=== PATIENT | female | born 1940 | race Caucasian/White ===

== ENCOUNTER 2023-01-27 04:15 | Day surgery (SDC) | payer OTHER ==
[2023-01-26 08:45] VITALS: BMI 36.8
[2023-01-27] MEDS ORDERED: MIDAZOLAM HCL 2 MG/2 ML SINGLE DOSE VIAL ONE (12:02)
[2023-01-27] MEDS ORDERED: PROPOFOL 40 ML ONE (12:02)
[2023-01-27] MEDS ORDERED: ONDANSETRON 4 MG/2 ML VIAL ONE (12:43)
[2023-01-27] MEDS ORDERED: KETAMINE HCL 500 MG/10 ML VIAL ONE (12:51)
[2023-01-27] MEDS ORDERED: CLINDAMYCIN 900 MG PREMIX BAG IVPB ONE (12:59)
[2023-01-27] MEDS ORDERED: LIDOCAINE 1% P/F 10 MG/ML VIAL INF ONE ×2 (13:00)
[2023-01-27] MEDS ORDERED: BUPIVACAINE HCL/PF 0.5% (5MG/ML) 10 ML VIAL IJ ONE ×2 (13:00)
[2023-01-27] MEDS ORDERED: ONDANSETRON 4 MG/2 ML VIAL IVPUSH PRN (13:54)
[2023-01-27] MEDS ORDERED: oxyCODONE HCL 5 MG TABLET PO PRN (13:54)
[2023-01-27] MEDS ORDERED: ACETAMINOPHEN 1000 MG/100 ML BAG IVPB PRN (13:54)
[2023-01-27] MEDS ORDERED: LACTATED RINGERS SOLUTION 1,000 ML IV SCH (14:00)
[2023-01-27] MEDS ORDERED: ACETAMINOPHEN INJECTION 100 ML IVPB ONE (14:59)
[2023-01-27] MEDS ORDERED: ACETAMINOPHEN 1000 MG/100 ML BAG IVPB ONE (15:02)
[2023-01-27 16:02] VITALS: RESP 20
[2023-01-27] MEDS ORDERED: oxyCODONE HCL 5 MG TABLET ONE (16:37)
[2023-01-27 18:17] VITALS: TEMP 97.8
[2023-01-27 18:22] VITALS: BP 110/61; PULSE 78
== END 2023-01-27 17:26 | disposition home or self-care (01) ==
LOC: JASU-SURG 04:15
PROVIDERS: ATTEND Podiatrist Foot & Ankle Surgery
PROC: 0QTN0ZZ Resection of Right Metatarsal, Open Approach (ICD-10-PCS; 2023-01-27)
PROC: 0QSN04Z Reposition Right Metatarsal with Internal Fixation Device, Open Approach (ICD-10-PCS; principal; 2023-01-27 12:00)
PROC: 0SNM0ZZ Release Right Metatarsal-Phalangeal Joint, Open Approach (ICD-10-PCS; 2023-01-27 12:00)
DX: M77.41 Metatarsalgia, right foot (principal); M20.41 Other hammer toe(s) (acquired), right foot; M20.21 Hallux rigidus, right foot
CPT/HCPCS: 73630-TC-RT-FY; 87070; 87205; 88305-TC; 88311-TC; 94760

== ENCOUNTER 2023-01-30 02:02 | Inpatient (IN) | payer OTHER ==
[2023-01-30 03:04] LABS: BASO % 0.2 % (0-2.0); EOS % 1.2 % (0-4.5); HEMATOCRIT 35.4 % (32.4-45.2); HEMOGLOBIN 11.9 GM/dL (10.7-15.3); LYMPH % 22.6 % (8-40); MCH 31.3 pg (25.7-33.7); MCHC 33.7 g/dl (32.0-36.0); MEAN CELL VOLUME 92.9 fl (80-96); MEAN PLT VOLUME 7.9 fl (7.5-11.1); MONO % 9.5 % (3.8-10.2); NEUT % 66.5 % (42.8-82.8); PLATELET COUNT 224 10^3/uL (134-434); RBC 3.81 M/mm3 (3.60-5.2); WHITE BLOOD COUNT 12.5 K/mm3 (4.0-10.0)
[2023-01-30 03:10] LABS: VENOUS BASE EXCESS 4.6 mmol/L (-2-2); VENOUS O2 SATURATION 35.7 % (70-80); VENOUS PH 7.354 (7.310-7.410)
[2023-01-30 03:13] LABS: INR 1.18 (0.83-1.09); PROTHROMBIN TIME (PATIENT) 13.7 SEC (9.7-13.0)
[2023-01-30 03:15] LABS: ACTIVATED PTT 25.5 SECONDS (25.2-36.5)
[2023-01-30 03:23] LABS: POTASSIUM 3.8 mmol/L (3.5-5.1)
[2023-01-30 03:25] LABS: ALBUMIN 2.8 g/dl (3.4-5.0); CALCIUM 8.5 mg/dL (8.5-10.1)
[2023-01-30 03:26] LABS: BLOOD UREA NITROGEN 15.6 mg/dL (7-18)
[2023-01-30 03:29] LABS: CREATININE 0.7 mg/dL (0.55-1.3)
[2023-01-30 03:30] LABS: BILIRUBIN,TOTAL 0.6 mg/dL (0.2-1); TOT PROT 5.5 g/dl (6.4-8.2)
[2023-01-30 05:41] LABS: EPI CELLS 10 /uL (0-25.1); HYALINE CASTS 1 /uL (0-3.1); PH,URINE 6.5 (5.0-8.0); URINE APPEARANCE CLEAR; URINE BACTERIA 26 /uL (0-1359); URINE BILIRUBIN 1+ (NEGATIVE); URINE COLOR DK YELLOW; URINE GLUCOSE (UA) NEGATIVE (NEGATIVE); URINE KETONE TRACE (NEGATIVE); URINE LEUK ESTERASE NEGATIVE (NEGATIVE); URINE NITRITE NEGATIVE (NEGATIVE); URINE PROTEIN 1+ (NEGATIVE); URINE RBC 31 /uL (0-23.9); URINE WBC 8 /uL (0-25.8)
[2023-01-30] MEDS ORDERED: ACETAMINOPHEN 1000 MG/100 ML BAG IVPB PRN (09:50)
[2023-01-30] MEDS ORDERED: ALBUTEROL SO4 HFA INHALER IH PRN (09:51)
[2023-01-30] MEDS ORDERED: PARoxetine HCL 30 MG TABLET PO SCH (10:00)
[2023-01-30] MEDS ORDERED: PANTOPRAZOLE 20 MG TABLET PO ONE (10:20)
[2023-01-30] MEDS ORDERED: metoPROLOL SUCCINATE 25 MG TAB.SR.24H (FP) PO ONE (10:20)
[2023-01-30] MEDS ORDERED: ENOXAPARIN NA (PORCINE) 40 MG/0.4 ML DISP.SYRIN SQ ONE (10:21)
[2023-01-30] MEDS ORDERED: PARoxetine HCL 10 MG TABLET ONE (10:21)
[2023-01-30] MEDS ORDERED: LEVOTHYROXINE NA 75 MCG TABLET (FP) ONE (10:21)
[2023-01-30] MEDS: metoPROLOL SUCCINATE 25 MG TAB.SR.24H (FP) PO SCH (10:35)
[2023-01-30] MEDS: PANTOPRAZOLE 20 MG TABLET PO SCH (10:35)
[2023-01-30] MEDS: ENOXAPARIN NA (PORCINE) 40 MG/0.4 ML DISP.SYRIN SQ SCH (10:35)
[2023-01-30] MEDS: LEVOTHYROXINE NA 75 MCG TABLET (FP) PO SCH (10:35)
[2023-01-30] MEDS: methylPREDNISolone 4 MG TABLET PO SCH (14:38)
[2023-01-30] MEDS: METHOTREXATE 2.5 MG TABLET PO SCH (14:38)
[2023-01-31 00:47] VITALS: BMI 29.0
[2023-01-31] MEDS: LEVOTHYROXINE NA 75 MCG TABLET (FP) PO SCH (06:29)
[2023-01-31 07:33] LABS: BASO % 0.6 % (0-2.0); EOS % 1.4 % (0-4.5); HEMATOCRIT 35.1 % (32.4-45.2); HEMOGLOBIN 12.2 GM/dL (10.7-15.3); LYMPH % 20.4 % (8-40); MCH 32.2 pg (25.7-33.7); MCHC 34.8 g/dl (32.0-36.0); MEAN CELL VOLUME 92.6 fl (80-96); MEAN PLT VOLUME 7.9 fl (7.5-11.1); MONO % 6.9 % (3.8-10.2); NEUT % 70.7 % (42.8-82.8); PLATELET COUNT 260 10^3/uL (134-434); RBC 3.79 M/mm3 (3.60-5.2); RDW 14.9 % (11.6-15.6); WHITE BLOOD COUNT 10.4 K/mm3 (4.0-10.0)
[2023-01-31 07:57] LABS: POTASSIUM 3.9 mmol/L (3.5-5.1)
[2023-01-31 07:58] LABS: CALCIUM 9.1 mg/dL (8.5-10.1)
[2023-01-31 07:59] LABS: MAGNESIUM 2.1 mg/dL (1.8-2.4)
[2023-01-31 08:00] LABS: ALBUMIN 2.7 g/dl (3.4-5.0); BLOOD UREA NITROGEN 11.1 mg/dL (7-18)
[2023-01-31 08:02] LABS: CREATININE 0.5 mg/dL (0.55-1.3)
[2023-01-31 08:03] LABS: PHOSPHOROUS 2.5 mg/dL (2.5-4.9)
[2023-01-31 08:04] LABS: TOT PROT 5.6 g/dl (6.4-8.2)
[2023-01-31 08:05] LABS: BILIRUBIN,TOTAL 0.5 mg/dL (0.2-1)
[2023-01-31] MEDS: PANTOPRAZOLE 20 MG TABLET PO SCH (09:44)
[2023-01-31] MEDS: metoPROLOL SUCCINATE 25 MG TAB.SR.24H (FP) PO SCH (09:44)
[2023-01-31] MEDS: methylPREDNISolone 4 MG TABLET PO SCH (09:45)
[2023-01-31] MEDS: PAROXETINE HCL 20 MG, PAROXETINE HCL 10 MG PO SCH (09:45)
[2023-01-31] MEDS: METHOTREXATE 2.5 MG TABLET PO SCH (09:46)
[2023-01-31] MEDS: ENOXAPARIN NA (PORCINE) 40 MG/0.4 ML DISP.SYRIN SQ SCH (09:47)
[2023-01-31] MEDS ORDERED: SODIUM CHLORIDE 500 ML IV SCH (11:15)
[2023-01-31] MEDS: ACETAMINOPHEN 325 MG TABLET (FP) PO PRN ×2 (11:34→20:14)
[2023-01-31] MEDS ORDERED: ALBUTEROL SO4 HFA INHALER IH PRN (14:28)
[2023-01-31] MEDS ORDERED: MELATONIN 5 MG TABLETS PO ONE (22:12)
[2023-02-01] MEDS ORDERED: LEVOTHYROXINE NA 75 MCG TABLET (FP) PO SCH (07:00)
[2023-02-01] MEDS: METHOTREXATE 2.5 MG TABLET PO SCH ×2 (09:55→10:07)
[2023-02-01] MEDS: PAROXETINE HCL 20 MG, PAROXETINE HCL 10 MG PO SCH (09:55)
[2023-02-01] MEDS ORDERED: metoPROLOL SUCCINATE 25 MG TAB.SR.24H (FP) PO SCH (10:00)
[2023-02-01] MEDS ORDERED: methylPREDNISolone 4 MG TABLET PO SCH (10:00)
[2023-02-01] MEDS ORDERED: PANTOPRAZOLE 20 MG TABLET PO SCH (10:00)
[2023-02-01] MEDS ORDERED: ENOXAPARIN NA (PORCINE) 40 MG/0.4 ML DISP.SYRIN SQ SCH (10:00)
[2023-02-01] MEDS: ACETAMINOPHEN 325 MG TABLET (FP) PO PRN ×3 (10:09→22:44)
[2023-02-01] MEDS ORDERED: ACETAMINOPHEN 325 MG TABLET (FP) PO PRN (12:05)
[2023-02-01] MEDS ORDERED: ALBUTEROL SO4 HFA INHALER IH PRN ×3 (12:05→23:42)
[2023-02-01] MEDS ORDERED: SENNOSIDES 8.6MG TABLET (FP) PO PRN ×2 (15:08→23:42)
[2023-02-01] MEDS: NYSTATIN 500,000 UNITS/5 ML SUSPENSION PO SCH ×2 (17:17→21:33)
[2023-02-01] MEDS ORDERED: ASCORBIC ACID 500 MG TABLET (FP) PO SCH (22:00)
[2023-02-01] MEDS ORDERED: CALCIUM 500MG/VIT-D 200 UNITS COMBO TABLET (FP) PO SCH (22:00)
[2023-02-01] MEDS ORDERED: DOCUSATE SODIUM 100 MG CAPSULE (FP) PO SCH (22:00)
[2023-02-02] MEDS: LEVOTHYROXINE NA 75 MCG TABLET (FP) PO SCH (06:05)
[2023-02-02 06:49] LABS: BASO % 0.9 % (0-2.0); EOS % 3.4 % (0-4.5); HEMATOCRIT 35.8 % (32.4-45.2); HEMOGLOBIN 12.5 GM/dL (10.7-15.3); LYMPH % 30.7 % (8-40); MCH 32.4 pg (25.7-33.7); MEAN CELL VOLUME 92.7 fl (80-96); PLATELET COUNT 283 10^3/uL (134-434); RBC 3.86 M/mm3 (3.60-5.2); RDW 15.1 % (11.6-15.6); WHITE BLOOD COUNT 7.2 K/mm3 (4.0-10.0)
[2023-02-02] MEDS ORDERED: LEVOTHYROXINE NA 75 MCG TABLET (FP) PO SCH ×2 (07:00)
[2023-02-02 07:14] LABS: ALBUMIN 2.6 g/dl (3.4-5.0); BLOOD UREA NITROGEN 9.3 mg/dL (7-18); CALCIUM 9.1 mg/dL (8.5-10.1); MAGNESIUM 2.1 mg/dL (1.8-2.4)
[2023-02-02 07:17] LABS: CREATININE 0.5 mg/dL (0.55-1.3); PHOSPHOROUS 3.6 mg/dL (2.5-4.9)
[2023-02-02 07:19] LABS: BILIRUBIN,TOTAL 0.4 mg/dL (0.2-1); TOT PROT 5.5 g/dl (6.4-8.2)
[2023-02-02] MEDS: PANTOPRAZOLE 20 MG TABLET PO SCH (09:57)
[2023-02-02] MEDS: DOCUSATE SODIUM 100 MG CAPSULE (FP) PO SCH ×2 (09:57→21:14)
[2023-02-02] MEDS: ENOXAPARIN NA (PORCINE) 40 MG/0.4 ML DISP.SYRIN SQ SCH (09:57)
[2023-02-02] MEDS: ASCORBIC ACID 500 MG TABLET (FP) PO SCH ×2 (09:57→21:14)
[2023-02-02] MEDS: metoPROLOL SUCCINATE 25 MG TAB.SR.24H (FP) PO SCH (09:57)
[2023-02-02] MEDS: NYSTATIN 500,000 UNITS/5 ML SUSPENSION PO SCH ×4 (09:57→21:15)
[2023-02-02] MEDS: CALCIUM 500MG/VIT-D 200 UNITS COMBO TABLET (FP) PO SCH ×2 (09:57→21:14)
[2023-02-02] MEDS ORDERED: PAROXETINE HCL 20 MG, PAROXETINE HCL 10 MG PO SCH ×2 (10:00)
[2023-02-02] MEDS ORDERED: metoPROLOL SUCCINATE 25 MG TAB.SR.24H (FP) PO SCH ×2 (10:00)
[2023-02-02] MEDS ORDERED: methylPREDNISolone 4 MG TABLET PO SCH ×2 (10:00)
[2023-02-02] MEDS ORDERED: ENOXAPARIN NA (PORCINE) 40 MG/0.4 ML DISP.SYRIN SQ SCH ×2 (10:00)
[2023-02-02] MEDS ORDERED: METHOTREXATE 2.5 MG TABLET PO SCH ×3 (10:00)
[2023-02-02] MEDS ORDERED: PANTOPRAZOLE 20 MG TABLET PO SCH ×2 (10:00)
[2023-02-02] MEDS: ACETAMINOPHEN 325 MG TABLET (FP) PO PRN ×3 (10:44→22:54)
[2023-02-02] MEDS: methylPREDNISolone 4 MG TABLET PO SCH (11:00)
[2023-02-02] MEDS: PAROXETINE HCL 20 MG, PAROXETINE HCL 10 MG PO SCH (11:00)
[2023-02-03] MEDS: LEVOTHYROXINE NA 75 MCG TABLET (FP) PO SCH (06:04)
[2023-02-03] MEDS: ACETAMINOPHEN 325 MG TABLET (FP) PO PRN (10:42)
[2023-02-03] MEDS: NYSTATIN 500,000 UNITS/5 ML SUSPENSION PO SCH ×2 (10:43→14:49)
[2023-02-03] MEDS: CALCIUM 500MG/VIT-D 200 UNITS COMBO TABLET (FP) PO SCH (10:43)
[2023-02-03] MEDS: ASCORBIC ACID 500 MG TABLET (FP) PO SCH (10:43)
[2023-02-03] MEDS: PANTOPRAZOLE 20 MG TABLET PO SCH (10:43)
[2023-02-03] MEDS: DOCUSATE SODIUM 100 MG CAPSULE (FP) PO SCH (10:43)
[2023-02-03] MEDS: metoPROLOL SUCCINATE 25 MG TAB.SR.24H (FP) PO SCH (10:43)
[2023-02-03] MEDS: PAROXETINE HCL 20 MG, PAROXETINE HCL 10 MG PO SCH (10:47)
[2023-02-03] MEDS: ENOXAPARIN NA (PORCINE) 40 MG/0.4 ML DISP.SYRIN SQ SCH (10:47)
[2023-02-03] MEDS: methylPREDNISolone 4 MG TABLET PO SCH (10:48)
[2023-02-03 14:27] VITALS: BP 112/52; PULSE 87; RESP 18; TEMP 97.9
== END 2023-02-03 16:38 | disposition home or self-care (01) | DRG 92 ==
LOC: JER 02:02 → JERBED 06:12 → J4S 20:35 → J5S 01-31 13:30 → OBSVTOIN 02-01 13:56 → J4S 02-01 23:24
PROVIDERS: ADMIT Internal Medicine; ATTEND Internal Medicine
DX: G92.8 Other toxic encephalopathy (principal); I24.8 Other forms of acute ischemic heart disease; J98.11 Atelectasis; J44.9 Chronic obstructive pulmonary disease, unspecified; I10 Essential (primary) hypertension; E78.5 Hyperlipidemia, unspecified; E03.9 Hypothyroidism, unspecified; F32.A Depression, unspecified; G47.09 Other insomnia; R94.31 Abnormal electrocardiogram [ECG] [EKG]; L40.59 Other psoriatic arthropathy; I44.0 Atrioventricular block, first degree; I45.19 Other right bundle-branch block; I35.0 Nonrheumatic aortic (valve) stenosis; T40.2X5A Adverse effect of other opioids, initial encounter; T42.6X5A Adverse effect of other antiepileptic and sedative-hypnotic drugs, initial encounter; R09.02 Hypoxemia
CPT/HCPCS: 0241U-QW; 36415; 70450-TC; 71045-TC-FY; 71250-TC; 80053; 80061; 81003; 82550; 82553; 82803; 82962; 83036; 83735; 84100; 84439; 84443; 84484; 85025; 85610; 85730; 87086; 93005; 93010; 93306-TC; 93970-TC; 94010; 94761; 97116-GP; 97161-GP; 99285-25; G0378; J8610

== ENCOUNTER 2023-02-03 20:30 | Inpatient (IN) | payer OTHER ==
[2023-02-03 22:25] LABS: VENOUS BASE EXCESS -0.6 mmol/L (-2-2); VENOUS O2 SATURATION 82.6 % (70-80); VENOUS PCO2 37.7 mmHg (38-52); VENOUS PH 7.416 (7.310-7.410)
[2023-02-03 22:27] LABS: BASO % 0.9 % (0-2.0); EOS % 1.8 % (0-4.5); HEMATOCRIT 37.7 % (32.4-45.2); HEMOGLOBIN 12.9 GM/dL (10.7-15.3); LYMPH % 20.5 % (8-40); MCH 31.9 pg (25.7-33.7); MCHC 34.3 g/dl (32.0-36.0); MEAN PLT VOLUME 8.3 fl (7.5-11.1); MONO % 5.4 % (3.8-10.2); NEUT % 71.4 % (42.8-82.8); PLATELET COUNT 332 10^3/uL (134-434); RBC 4.05 M/mm3 (3.60-5.2); RDW 15.2 % (11.6-15.6); WHITE BLOOD COUNT 10.8 K/mm3 (4.0-10.0)
[2023-02-03 22:37] LABS: INR 1.13 (0.83-1.09); PROTHROMBIN TIME (PATIENT) 13.1 SEC (9.7-13.0)
[2023-02-03 22:40] LABS: ACTIVATED PTT 30.4 SECONDS (25.2-36.5)
[2023-02-03 22:48] LABS: POTASSIUM 3.8 mmol/L (3.5-5.1)
[2023-02-03 22:51] LABS: BLOOD UREA NITROGEN 21.2 mg/dL (7-18)
[2023-02-03 22:54] LABS: CREATININE 0.7 mg/dL (0.55-1.3)
[2023-02-03 22:55] LABS: BILIRUBIN,TOTAL 0.3 mg/dL (0.2-1)
[2023-02-03] MEDS ORDERED: SODIUM CHLORIDE 0.9% 500 ML INFUS.BAG IV ONE (23:00)
[2023-02-03] MEDS ORDERED: MEROPENEM 1 GM in DEXTROSE 5%-WATER 100 ML IVPB ONE (23:03)
[2023-02-03] MEDS ORDERED: VANCOMYCIN/WATER 2 GM/400 ML PREMIX BAG (RESTRICTED TO ID ONLY) IVPB ONE (23:04)
[2023-02-03] MEDS ORDERED: ACETAMINOPHEN 1000 MG/100 ML BAG IVPB ONE (23:06)
[2023-02-03 23:18] LABS: ERYTHROCYTE SEDIMENTATION RATE 45 mm/hr (0-30)
[2023-02-04] MEDS ORDERED: MEROPENEM 1 GM VIAL (RESTRICTED TO ID) IVPB ONE (00:10)
[2023-02-04] MEDS ORDERED: MAG HYDROX/AL HYDROX/SIMETH 30 ML UNIT-DOSE CUP PO PRN (01:17)
[2023-02-04] MEDS ORDERED: guaiFENesin/D-METHORPHAN HB 10 ML UNIT-DOSE CUPS PO PRN (01:18)
[2023-02-04] MEDS ORDERED: PANTOPRAZOLE 20 MG TABLET PO ONE (01:18)
[2023-02-04] MEDS ORDERED: ALBUTEROL SO4 HFA INHALER IH PRN (01:34)
[2023-02-04] MEDS ORDERED: SENNOSIDES 8.6MG TABLET (FP) PO PRN (01:35)
[2023-02-04] MEDS ORDERED: DOCUSATE SODIUM 100 MG CAPSULE (FP) PO ONE (02:19)
[2023-02-04] MEDS ORDERED: ASCORBIC ACID 500 MG TABLET (FP) ONE (02:19)
[2023-02-04] MEDS: DOCUSATE SODIUM 100 MG CAPSULE (FP) PO SCH ×3 (02:22→21:24)
[2023-02-04] MEDS: ASCORBIC ACID 500 MG TABLET (FP) PO SCH ×3 (02:22→21:24)
[2023-02-04] MEDS ORDERED: ZOLPIDEM TARTRATE 5 MG TABLET PO PRN (03:54)
[2023-02-04] MEDS: LEVOTHYROXINE NA 75 MCG TABLET (FP) PO SCH (06:02)
[2023-02-04 07:55] VITALS: BMI 45.2
[2023-02-04 08:18] LABS: EOS % 3.9 % (0-4.5); HEMATOCRIT 35.3 % (32.4-45.2); HEMOGLOBIN 12.1 GM/dL (10.7-15.3); LYMPH % 28.2 % (8-40); MCH 31.7 pg (25.7-33.7); MCHC 34.2 g/dl (32.0-36.0); MEAN CELL VOLUME 92.6 fl (80-96); MEAN PLT VOLUME 8.2 fl (7.5-11.1); MONO % 8.1 % (3.8-10.2); NEUT % 58.8 % (42.8-82.8); PLATELET COUNT 315 10^3/uL (134-434); RBC 3.81 M/mm3 (3.60-5.2); RDW 15.1 % (11.6-15.6); WHITE BLOOD COUNT 8.3 K/mm3 (4.0-10.0)
[2023-02-04 08:36] LABS: POTASSIUM 4.4 mmol/L (3.5-5.1)
[2023-02-04 08:44] LABS: CALCIUM 9.1 mg/dL (8.5-10.1)
[2023-02-04 08:47] LABS: CREATININE 0.6 mg/dL (0.55-1.3)
[2023-02-04] MEDS ORDERED: FOLIC ACID 1 MG TABLET (FP) PO SCH (10:00)
[2023-02-04] MEDS ORDERED: LORATADINE 10 MG TABLET PO SCH (10:00)
[2023-02-04] MEDS ORDERED: PARoxetine HCL 30 MG TABLET PO SCH (10:00)
[2023-02-04] MEDS ORDERED: MULTIVITAMINS (DAILY MVI) TABLET (FP) PO SCH (10:00)
[2023-02-04] MEDS: CALCIUM 500MG/VIT-D 200 UNITS COMBO TABLET (FP) PO SCH ×2 (10:13→21:24)
[2023-02-04] MEDS: MEROPENEM 1 GM in DEXTROSE 5%-WATER 100 ML IVPB SCH ×2 (10:13→17:10)
[2023-02-04] MEDS: PAROXETINE HCL 20 MG, PAROXETINE HCL 10 MG PO SCH (10:20)
[2023-02-04] MEDS: PANTOPRAZOLE 20 MG TABLET PO SCH (10:20)
[2023-02-04] MEDS: metoPROLOL SUCCINATE 25 MG TAB.SR.24H (FP) PO SCH (10:20)
[2023-02-04] MEDS: ACETAMINOPHEN 1000 MG/100 ML BAG IVPB PRN ×2 (10:28→18:22)
[2023-02-04] MEDS: methylPREDNISolone 4 MG TABLET PO SCH (11:20)
[2023-02-04] MEDS: VANCOMYCIN PREMIX 1.5 GM 1,500 MG/300 ML BAG IVPB SCH (12:33)
[2023-02-04 13:34] LABS: EPI CELLS 6 /uL (0-25.1); HYALINE CASTS 0 /uL (0-3.1); PH,URINE 6.5 (5.0-8.0); URINE APPEARANCE CLOUDY; URINE BACTERIA >9,000 /uL (0-1359); URINE BILIRUBIN NEGATIVE (NEGATIVE); URINE COLOR YELLOW; URINE GLUCOSE (UA) NEGATIVE (NEGATIVE); URINE KETONE NEGATIVE (NEGATIVE); URINE LEUK ESTERASE TRACE (NEGATIVE); URINE NITRITE NEGATIVE (NEGATIVE); URINE PROTEIN NEGATIVE (NEGATIVE); URINE WBC 64 /uL (0-25.8)
[2023-02-04 14:25] LABS: URINE RBC 35 /uL (0-23.9)
[2023-02-04] MEDS: HEPARIN NA (PORCINE) 5,000 UNITS/ML 1ML VIAL SQ SCH (21:23)
[2023-02-05] MEDS: MEROPENEM 1 GM in DEXTROSE 5%-WATER 100 ML IVPB SCH (01:52)
[2023-02-05] MEDS: VANCOMYCIN PREMIX 1.5 GM 1,500 MG/300 ML BAG IVPB SCH (03:03)
[2023-02-05] MEDS: LEVOTHYROXINE NA 75 MCG TABLET (FP) PO SCH (06:32)
[2023-02-05] MEDS: methylPREDNISolone 4 MG TABLET PO SCH (09:46)
[2023-02-05] MEDS: ACETAMINOPHEN 325 MG TABLET (FP) PO PRN ×2 (09:46→17:49)
[2023-02-05] MEDS: HEPARIN NA (PORCINE) 5,000 UNITS/ML 1ML VIAL SQ SCH ×2 (09:46→21:22)
[2023-02-05] MEDS: ASCORBIC ACID 500 MG TABLET (FP) PO SCH ×2 (09:47→21:22)
[2023-02-05] MEDS: DOCUSATE SODIUM 100 MG CAPSULE (FP) PO SCH ×2 (09:47→21:22)
[2023-02-05] MEDS: CALCIUM 500MG/VIT-D 200 UNITS COMBO TABLET (FP) PO SCH ×2 (09:47→21:22)
[2023-02-05] MEDS: metoPROLOL SUCCINATE 25 MG TAB.SR.24H (FP) PO SCH (09:47)
[2023-02-05] MEDS: PANTOPRAZOLE 20 MG TABLET PO SCH (09:48)
[2023-02-05] MEDS: PAROXETINE HCL 20 MG, PAROXETINE HCL 10 MG PO SCH (09:48)
[2023-02-05] MEDS ORDERED: MEROPENEM 1 GM in DEXTROSE 5%-WATER 100 ML IVPB SCH (10:00)
[2023-02-05] MEDS ORDERED: VANCOMYCIN PREMIX 1.5 GM 1,500 MG/300 ML BAG IVPB SCH (13:00)
[2023-02-05] MEDS: VANCOMYCIN/WATER 1250 MG 1,250 MG/250 ML BAG IVPB SCH (15:03)
[2023-02-06] MEDS: VANCOMYCIN/WATER 1250 MG 1,250 MG/250 ML BAG IVPB SCH ×2 (03:01→15:08)
[2023-02-06] MEDS: LEVOTHYROXINE NA 75 MCG TABLET (FP) PO SCH (06:15)
[2023-02-06] MEDS: HEPARIN NA (PORCINE) 5,000 UNITS/ML 1ML VIAL SQ SCH ×2 (09:36→22:05)
[2023-02-06] MEDS: DOCUSATE SODIUM 100 MG CAPSULE (FP) PO SCH ×2 (09:36→22:04)
[2023-02-06] MEDS: metoPROLOL SUCCINATE 25 MG TAB.SR.24H (FP) PO SCH (09:37)
[2023-02-06] MEDS: CALCIUM 500MG/VIT-D 200 UNITS COMBO TABLET (FP) PO SCH ×2 (09:37→22:05)
[2023-02-06] MEDS: PAROXETINE HCL 20 MG, PAROXETINE HCL 10 MG PO SCH (09:38)
[2023-02-06] MEDS: methylPREDNISolone 4 MG TABLET PO SCH (09:38)
[2023-02-06] MEDS: ASCORBIC ACID 500 MG TABLET (FP) PO SCH ×2 (09:38→22:07)
[2023-02-06] MEDS: PANTOPRAZOLE 20 MG TABLET PO SCH (09:38)
[2023-02-06] MEDS: ACETAMINOPHEN 325 MG TABLET (FP) PO PRN ×2 (09:39→15:09)
[2023-02-06 10:29] LABS: BASO % 1.6 % (0-2.0); EOS % 3.3 % (0-4.5); HEMATOCRIT 37.2 % (32.4-45.2); HEMOGLOBIN 12.5 GM/dL (10.7-15.3); LYMPH % 23.1 % (8-40); MCH 31.2 pg (25.7-33.7); MCHC 33.7 g/dl (32.0-36.0); MEAN CELL VOLUME 92.6 fl (80-96); MEAN PLT VOLUME 7.6 fl (7.5-11.1); MONO % 6.6 % (3.8-10.2); NEUT % 65.4 % (42.8-82.8); PLATELET COUNT 353 10^3/uL (134-434); RBC 4.02 M/mm3 (3.60-5.2); RDW 15.2 % (11.6-15.6); WHITE BLOOD COUNT 7.8 K/mm3 (4.0-10.0)
[2023-02-06] MEDS: POLYETHYLENE GLYCOL (HEALTHYLAX) 3350 17 GM PACKET PO SCH ×2 (10:43→22:05)
[2023-02-06 11:42] LABS: POTASSIUM 4.3 mmol/L (3.5-5.1)
[2023-02-06] MEDS ORDERED: METHOTREXATE 2.5 MG TABLET PO SCH (11:45)
[2023-02-06 12:15] LABS: CALCIUM 9.1 mg/dL (8.5-10.1)
[2023-02-06 12:16] LABS: ALBUMIN 2.9 g/dl (3.4-5.0)
[2023-02-06 12:18] LABS: CREATININE 0.6 mg/dL (0.55-1.3)
[2023-02-06 12:20] LABS: BILIRUBIN,TOTAL 0.4 mg/dL (0.2-1); TOT PROT 5.5 g/dl (6.4-8.2)
[2023-02-06] MEDS: NYSTATIN POWDER 100,000 UNITS/GM - 15 GM TOPICAL POWDER TP SCH ×2 (12:37→22:06)
[2023-02-06] MEDS: METHOTREXATE 2.5 MG TABLET PO SCH ×5 (15:15→22:19)
[2023-02-06] MEDS: NYSTATIN 500,000 UNITS/5 ML SUSPENSION PO SCH ×4 (15:15→18:12)
[2023-02-07] MEDS: VANCOMYCIN/WATER 1250 MG 1,250 MG/250 ML BAG IVPB SCH ×2 (02:04→16:22)
[2023-02-07] MEDS: LEVOTHYROXINE NA 75 MCG TABLET (FP) PO SCH (06:13)
[2023-02-07 08:11] LABS: BASO % 1.4 % (0-2.0); EOS % 4.2 % (0-4.5); HEMATOCRIT 37.9 % (32.4-45.2); HEMOGLOBIN 12.5 GM/dL (10.7-15.3); LYMPH % 26.5 % (8-40); MCH 30.7 pg (25.7-33.7); MEAN CELL VOLUME 93.3 fl (80-96); MEAN PLT VOLUME 7.4 fl (7.5-11.1); MONO % 8.3 % (3.8-10.2); NEUT % 59.6 % (42.8-82.8); PLATELET COUNT 350 10^3/uL (134-434); RBC 4.06 M/mm3 (3.60-5.2); RDW 15.2 % (11.6-15.6); WHITE BLOOD COUNT 8.2 K/mm3 (4.0-10.0)
[2023-02-07 08:23] LABS: POTASSIUM 4.3 mmol/L (3.5-5.1)
[2023-02-07 08:25] LABS: CALCIUM 9.4 mg/dL (8.5-10.1)
[2023-02-07 08:26] LABS: BLOOD UREA NITROGEN 16.2 mg/dL (7-18); MAGNESIUM 2.1 mg/dL (1.8-2.4)
[2023-02-07 08:30] LABS: CREATININE 0.6 mg/dL (0.55-1.3)
[2023-02-07] MEDS: DOCUSATE SODIUM 100 MG CAPSULE (FP) PO SCH ×2 (09:54→21:31)
[2023-02-07] MEDS: metoPROLOL SUCCINATE 25 MG TAB.SR.24H (FP) PO SCH (09:54)
[2023-02-07] MEDS: PANTOPRAZOLE 20 MG TABLET PO SCH (09:55)
[2023-02-07] MEDS: CALCIUM 500MG/VIT-D 200 UNITS COMBO TABLET (FP) PO SCH ×2 (09:55→21:31)
[2023-02-07] MEDS: HEPARIN NA (PORCINE) 5,000 UNITS/ML 1ML VIAL SQ SCH ×2 (09:55→21:31)
[2023-02-07] MEDS: POLYETHYLENE GLYCOL (HEALTHYLAX) 3350 17 GM PACKET PO SCH ×2 (09:55→21:31)
[2023-02-07] MEDS: PAROXETINE HCL 20 MG, PAROXETINE HCL 10 MG PO SCH (09:55)
[2023-02-07] MEDS: methylPREDNISolone 4 MG TABLET PO SCH (09:56)
[2023-02-07] MEDS: NYSTATIN POWDER 100,000 UNITS/GM - 15 GM TOPICAL POWDER TP SCH ×2 (09:56→21:31)
[2023-02-07] MEDS: ASCORBIC ACID 500 MG TABLET (FP) PO SCH ×2 (09:57→21:32)
[2023-02-07] MEDS: ACETAMINOPHEN 325 MG TABLET (FP) PO PRN ×2 (10:55→18:57)
[2023-02-08] MEDS: LEVOTHYROXINE NA 75 MCG TABLET (FP) PO SCH (06:28)
[2023-02-08 07:08] LABS: BASO % 1.9 % (0-2.0); EOS % 4.6 % (0-4.5); HEMATOCRIT 38.7 % (32.4-45.2); HEMOGLOBIN 13.2 GM/dL (10.7-15.3); LYMPH % 29.9 % (8-40); MCH 31.8 pg (25.7-33.7); MCHC 34.1 g/dl (32.0-36.0); MEAN CELL VOLUME 93.1 fl (80-96); MEAN PLT VOLUME 8.3 fl (7.5-11.1); NEUT % 55.6 % (42.8-82.8); PLATELET COUNT 322 10^3/uL (134-434); RBC 4.16 M/mm3 (3.60-5.2); RDW 15.2 % (11.6-15.6); WHITE BLOOD COUNT 7.7 K/mm3 (4.0-10.0)
[2023-02-08 07:20] LABS: POTASSIUM 4.2 mmol/L (3.5-5.1)
[2023-02-08 07:25] LABS: BLOOD UREA NITROGEN 15.6 mg/dL (7-18); CALCIUM 9.5 mg/dL (8.5-10.1); MAGNESIUM 1.8 mg/dL (1.8-2.4)
[2023-02-08 07:30] LABS: CREATININE 0.5 mg/dL (0.55-1.3)
[2023-02-08 08:49] LABS: ERYTHROCYTE SEDIMENTATION RATE 33 mm/hr (0-30)
[2023-02-08 09:33] VITALS: RESP 18
[2023-02-08] MEDS: VANCOMYCIN/WATER 1250 MG 1,250 MG/250 ML BAG IVPB SCH (09:55)
[2023-02-08] MEDS: CALCIUM 500MG/VIT-D 200 UNITS COMBO TABLET (FP) PO SCH ×2 (09:56→21:27)
[2023-02-08] MEDS: PAROXETINE HCL 20 MG, PAROXETINE HCL 10 MG PO SCH (09:56)
[2023-02-08] MEDS: DOCUSATE SODIUM 100 MG CAPSULE (FP) PO SCH ×2 (09:56→21:27)
[2023-02-08] MEDS: HEPARIN NA (PORCINE) 5,000 UNITS/ML 1ML VIAL SQ SCH ×2 (09:56→21:27)
[2023-02-08] MEDS: metoPROLOL SUCCINATE 25 MG TAB.SR.24H (FP) PO SCH (09:56)
[2023-02-08] MEDS: NYSTATIN POWDER 100,000 UNITS/GM - 15 GM TOPICAL POWDER TP SCH ×2 (09:57→22:30)
[2023-02-08] MEDS: PANTOPRAZOLE 20 MG TABLET PO SCH (09:57)
[2023-02-08] MEDS: POLYETHYLENE GLYCOL (HEALTHYLAX) 3350 17 GM PACKET PO SCH ×2 (09:58→21:27)
[2023-02-08] MEDS: ASCORBIC ACID 500 MG TABLET (FP) PO SCH ×2 (09:58→21:27)
[2023-02-08] MEDS: ACETAMINOPHEN 325 MG TABLET (FP) PO PRN ×2 (10:01→20:14)
[2023-02-08] MEDS: methylPREDNISolone 4 MG TABLET PO SCH (10:02)
[2023-02-09] MEDS: LEVOTHYROXINE NA 75 MCG TABLET (FP) PO SCH (06:03)
[2023-02-09] MEDS: ASCORBIC ACID 500 MG TABLET (FP) PO SCH (09:51)
[2023-02-09] MEDS: POLYETHYLENE GLYCOL (HEALTHYLAX) 3350 17 GM PACKET PO SCH (09:51)
[2023-02-09] MEDS: PAROXETINE HCL 20 MG, PAROXETINE HCL 10 MG PO SCH (09:51)
[2023-02-09] MEDS: CALCIUM 500MG/VIT-D 200 UNITS COMBO TABLET (FP) PO SCH (09:52)
[2023-02-09] MEDS: PANTOPRAZOLE 20 MG TABLET PO SCH (09:52)
[2023-02-09] MEDS: DOCUSATE SODIUM 100 MG CAPSULE (FP) PO SCH (09:52)
[2023-02-09] MEDS: HEPARIN NA (PORCINE) 5,000 UNITS/ML 1ML VIAL SQ SCH (09:53)
[2023-02-09] MEDS: VANCOMYCIN/WATER 1250 MG 1,250 MG/250 ML BAG IVPB SCH (09:53)
[2023-02-09] MEDS: methylPREDNISolone 4 MG TABLET PO SCH (09:54)
[2023-02-09] MEDS: NYSTATIN POWDER 100,000 UNITS/GM - 15 GM TOPICAL POWDER TP SCH (09:54)
[2023-02-09] MEDS ORDERED: DOXYCYCLINE HYCLATE 100 MG CAPSULE PO SCH ×2 (10:00)
[2023-02-09] MEDS: ACETAMINOPHEN 325 MG TABLET (FP) PO PRN (10:07)
[2023-02-09] MEDS: metoPROLOL SUCCINATE 25 MG TAB.SR.24H (FP) PO SCH (10:11)
[2023-02-09 12:08] VITALS: BP 99/60; PULSE 91; TEMP 98.4
== END 2023-02-09 13:33 | DRG 863 ==
LOC: JER 20:30 → JERBED 23:01 → J7W 02-04 03:22
PROVIDERS: ADMIT Internal Medicine; ATTEND Internal Medicine
DX: T81.49XA Infection following a procedure, other surgical site, initial encounter (principal); L03.115 Cellulitis of right lower limb; J44.9 Chronic obstructive pulmonary disease, unspecified; I10 Essential (primary) hypertension; E78.5 Hyperlipidemia, unspecified; E03.9 Hypothyroidism, unspecified; Z88.0 Allergy status to penicillin; I44.0 Atrioventricular block, first degree; I45.10 Unspecified right bundle-branch block; M79.671 Pain in right foot; L40.50 Arthropathic psoriasis, unspecified; E66.9 Obesity, unspecified; Z68.38 Body mass index [BMI] 38.0-38.9, adult; N20.0 Calculus of kidney; B95.7 Other staphylococcus as the cause of diseases classified elsewhere; Y83.8 Other surgical procedures as the cause of abnormal reaction of the patient, or of later complication, without mention of misadventure at the time of the procedure
CPT/HCPCS: 0241U-QW; 36415; 71045-TC-FY; 73630-TC-RT-FY; 73723-TC; 80048; 80053; 81003; 82803; 83605; 83735; 85025; 85610; 85651; 85730; 86140; 86850; 86870; 86900; 86901; 86902; 87040; 87070; 87086; 87205; 93005; 93010; 97116-GP; 97162-GP; 99285-25; A9579; C9803-CS; G0480; J1644; J8610; U0003; U0005